=== PATIENT | female | born 1970 | race Caucasian/White ===

== ENCOUNTER → 2016-07-18 | Outpatient (CLI) | payer OTHER | END | disposition disaster alternative care site (69) | LOC: GRAD 16:22 | DX: S09.90XA Unspecified injury of head, initial encounter (principal); S00.03XA Contusion of scalp, initial encounter; H53.9 Unspecified visual disturbance; R51 Headache; X58.XXXA Exposure to other specified factors, initial encounter ==

== ENCOUNTER → 2016-08-15 | Outpatient (CLI) | payer OTHER | END | disposition disaster alternative care site (69) | LOC: GRAD 15:34 | DX: Z03.89 Encounter for observation for other suspected diseases and conditions ruled out (principal); N28.89 Other specified disorders of kidney and ureter ==

== ENCOUNTER 2016-09-25 14:40 | Emergency (ER) | payer OTHER ==
--- NOTE | ~2016-09-25 | ER ---
PATIENT'S NAME: [facility]NST [facility] AGE: 45 Y [address] ROOM: [place] [id number] LOCATION: ED ADMIT DATE: 09/25/2016 ER/Outpatient Report DISCHARGE DATE: 09/25/2016 FAMILY PHYSICIAN: Toña Bro MD ATTENDING PHYSICIAN: Sharon Glaser Time of Arrival: 1440 hours. Time Seen: 1450 hours. IDENTIFICATION: A 45-year-old female. CHIEF COMPLAINT: Chest pain. HISTORY OF PRESENT ILLNESS: The patient states that 1 hour prior to arrival she developed some left shoulder pain, anterior chest pain, and left neck pain. She was doing some natanael and has lifted the vegetables, but did not really feel that she had lifted anything heavier, turned, but she felt a sharp pain to her left shoulder and since then has had the rest of this pain. She has associated nausea. She said she was diaphoretic and a little bit lightheaded. She has never had pain like this before. No previous history of coronary artery disease. She has no risk factors, and no family history of premature coronary artery disease. Her pain is worse with a deep breath and worse with movement. Currently, she rates her pain at about 6/10 on the pain scale. ALLERGIES: TO BENADRYL, EPINEPHRINE, SUDAFED, LEVAQUIN, ROCEPHIN, PENICILLIN, AND SULFA. CURRENT MEDICATIONS: 1. Synthroid. 2. Prilosec. 3. Probiotic. 4. Singular. 5. Claritin. 6. Ambien. 7. Flexeril. 8. Vitamin D. 9. Spironolactone. MEDICAL PROBLEMS: Migraine headaches and fibromyalgia. PRIOR SURGERIES: PATIENT'S NAME: ERNST JO Momo [facility] AGE: 45 Y [address] ROOM: [place] [address] LOCATION: [facility] ADMIT DATE: 09/25/2016 ER/Outpatient Report DISCHARGE DATE: 09/25/2016 FAMILY PHYSICIAN: Toña Bro MD ATTENDING PHYSICIAN: Sharon Glaser section, cholecystectomy, right foot surgery, and hysterectomy. SOCIAL HISTORY: The patient is . Lives here in [place]. She is self-employed. Tobacco use, denies. Alcohol use, social. Drug use, denies. FAMILY HISTORY: No premature coronary artery disease. REVIEW OF SYSTEMS: All systems reviewed negative other than what is noted in the HPI. PHYSICAL EXAMINATION: VITAL SIGNS: Weight 83 kg, blood pressure 134/86, pulse 72, respirations 20, temperature 97.2, and saturations 99% on room air. GENERAL: A 45-year-old female, in mild distress. HEENT: Unremarkable. LUNGS: Clear to auscultation. HEART: Regular rate and rhythm. ABDOMEN: Soft, nondistended, and nontender. SKIN: [place], warm, and dry. No lesions or rashes noted. NEUROLOGIC: No focal deficit. MUSCULOSKELETAL: No lower extremity edema. No calf tenderness. The patient has no chest wall tenderness. She does have pain with moving her left shoulder and pain posterior to her left shoulder. DIAGNOSTIC DATA: X-ray of her shoulder is negative for acute fracture or dislocation. Pending Radiology over-read. Chest x-ray, no acute process. Pending Radiology over- read. EMERGENCY DEPARTMENT COURSE: An IV was initiated. Labs were drawn. The patient was given Toradol with improvement of her pain, but then she had more spasm just behind her shoulder. She was given Valium again with some improvement in her pain. She had already taken a full-strength aspirin at home prior to arrival. EKG initially at 1453 hours, normal sinus rhythm at 74 beats per minute. No acute ST elevation or depression. Q-wave noted in lead III and T-wave inversion in lead III. No other findings noted. Repeat EKG at 1647 hours, unchanged. CBC normal. INR 0.94. Chemistry panel normal. Magnesium 2.4. Cardiac enzymes are negative x2. D-dimer normal at 0.24. IMPRESSION AND PLAN: Musculoskeletal left shoulder pain and chest pain. Rest. No lifting. Ibuprofen 400-600 mg 3 times daily with food. Valium 2 mg 1/2 to 1 tablet q.8 PATIENT'S NAME: JO DUKES [facility] AGE: 45 Y [address] ROOM: [place], [place] [address] LOCATION: ED ADMIT DATE: 09/25/2016 ER/Outpatient Report DISCHARGE DATE: 09/25/2016 FAMILY PHYSICIAN: Toña Bro MD ATTENDING PHYSICIAN: Sharon Galser [email or web address] spasm, dispensed 10 with 0 refills; and follow up with Dr. Bro in 1-2 days. Follow up sooner if any problems or concerns. The patient and her understand and agree, and all questions have been answered. MD CHRIS RODRIGUEZ/roxy /[id number] d: 09/25/167 t: 09/30/16 0701, OUTPATIENT REPORT
[2016-09-25 15:17] LABS: BASOPHIL % 0.4 %; EOSINOPHIL # 0.1 K/uL (0.0-0.5); EOSINOPHIL % 1.1 %; HEMATOCRIT 42.6 % (33.0-46.0); IMMATURE GRANULOCYTE % 0.1 %; LYMPHOCYTE # 2.2 K/uL (0.8-4.0); LYMPHOCYTE % 29.6 %; MCH 31.8 pg (27.0-34.0); MCHC 35.2 gm/dL (32.0-36.5); MCV 90.4 fl (83.0-98.0); MONOCYTE # 0.5 K/uL (0.0-1.0); MONOCYTE % 6.4 %; MPV 9.8 fl (9.4-12.4); NEUTROPHIL # (ANC) 4.7 K/uL (1.8-7.8); NEUTROPHIL % 62.4 %; NRBC % 0 /100WBC (0-0.00); PLATELET COUNT 190 K/uL (150-450); RBC 4.71 M/uL (3.50-5.50); RDW-CV 12.8 % (11.9-14.6); WBC 7.5 K/uL (4.0-11.0)
[2016-09-25 15:24] LABS: INR - (THERAPEUTIC) 0.94 (0.92-1.07); PROTIME 9.9 SECONDS (9.8-11.4); PTT 28 SECONDS (25-32)
[2016-09-25 15:30] LABS: ALBUMIN 3.8 gm/dL (3.5-5.0); ALK PHOS 76 IU/L (33-138); ALT 21 IU/L (12-78); ANION GAP 11.8 (10.0-19.0); AST 12 IU/L (10-40); BLOOD UREA NITROGEN 10 mg/dL (6-24); CALCIUM 8.7 mg/dL (8.5-10.5); CHLORIDE 110 mMol/L (96-110); CO2 23 mMol/L (22-32); CPK 69 IU/L (21-215); CREATININE 0.9 mg/dL (0.5-1.1); MAGNESIUM 2.4 mg/dL (1.8-2.6); POTASSIUM 3.8 mMol/L (3.7-5.1); SODIUM 141 mMol/L (135-145); TOTAL BILIRUBIN 0.5 mg/dL (0.0-1.5)
[2016-09-25 17:22] LABS: CPK 63 IU/L (21-215)
== END 2016-09-25 17:39 | disposition disaster alternative care site (69) ==
LOC: GMED 14:40
PROVIDERS: Family Medicine
DX: R07.89 Other chest pain (principal); M25.512 Pain in left shoulder; G43.909 Migraine, unspecified, not intractable, without status migrainosus; Z90.49 Acquired absence of other specified parts of digestive tract; Z90.710 Acquired absence of both cervix and uterus; Z98.890 Other specified postprocedural states; Z88.0 Allergy status to penicillin; Z88.1 Allergy status to other antibiotic agents; Z88.2 Allergy status to sulfonamides; Z88.8 Allergy status to other drugs, medicaments and biological substances; Z79.899 Other long term (current) drug therapy
CPT/HCPCS: J1885